=== PATIENT | male | born 1960 | race Caucasian/White ===

== ENCOUNTER 2016-07-30 13:53 | Outpatient (CLI) | payer MEDICARE, MEDICAID | END 2016-07-30 13:54 | LOC: NEPHRO 13:53 | PROVIDERS: ATTEND Internal Medicine Nephrology | DX: I12.9 Hypertensive chronic kidney disease with stage 1 through stage 4 chronic kidney disease, or unspecified chronic kidney disease (principal); N18.9 Chronic kidney disease, unspecified; Z94.0 Kidney transplant status; E87.6 Hypokalemia | CPT/HCPCS: G0463 ==

== ENCOUNTER 2016-12-02 13:14 | Outpatient (CLI) | payer MEDICARE, BC, MEDICAID | END 2016-12-02 13:15 | LOC: NEPHRO 13:14 | PROVIDERS: ATTEND Internal Medicine Nephrology | DX: Z94.0 Kidney transplant status (principal); E13.9 Other specified diabetes mellitus without complications | CPT/HCPCS: G0463 ==

== ENCOUNTER 2017-03-17 13:59 | Outpatient (CLI) | payer MEDICARE, BC | END 2017-03-17 14:00 | LOC: NEPHRO 13:59 | PROVIDERS: ATTEND Internal Medicine Nephrology | DX: E11.9 Type 2 diabetes mellitus without complications (principal); I10 Essential (primary) hypertension; Z94.0 Kidney transplant status | CPT/HCPCS: G0463 ==

== ENCOUNTER 2017-06-09 14:04 | Outpatient (CLI) | payer MEDICARE, BC | END 2017-06-09 14:05 | LOC: NEPHRO 14:04 | PROVIDERS: ATTEND Internal Medicine Nephrology | DX: E87.6 Hypokalemia (principal); Z94.0 Kidney transplant status | CPT/HCPCS: G0463 ==

== ENCOUNTER 2017-10-13 13:45 | Outpatient (CLI) | payer MEDICARE, BC | END 2017-10-13 13:46 | LOC: NEPHRO 13:45 | PROVIDERS: ATTEND Internal Medicine Nephrology | DX: Z94.0 Kidney transplant status (principal); I10 Essential (primary) hypertension; N18.9 Chronic kidney disease, unspecified | CPT/HCPCS: G0463 ==

== ENCOUNTER 2018-02-16 14:18 | Outpatient (CLI) | payer MEDICARE, BC | END 2018-02-16 14:20 | LOC: NEPHRO 14:18 | PROVIDERS: ATTEND Internal Medicine Nephrology | DX: Z94.0 Kidney transplant status (principal); Q61.3 Polycystic kidney, unspecified | CPT/HCPCS: G0463 ==

== ENCOUNTER 2018-10-05 15:09 | Outpatient (CLI) | payer MEDICARE | END 2018-10-05 15:11 | LOC: NEPHRO 15:09 | PROVIDERS: ATTEND Internal Medicine Nephrology | DX: Q61.2 Polycystic kidney, adult type (principal); Z94.0 Kidney transplant status; Z72.0 Tobacco use | CPT/HCPCS: G0463 ==

== ENCOUNTER 2019-01-11 14:52 | Outpatient (CLI) | payer MEDICARE | END 2019-01-11 15:20 | LOC: NEPHRO 14:52 | PROVIDERS: ATTEND Internal Medicine Nephrology | DX: Q61.2 Polycystic kidney, adult type (principal); N25.0 Renal osteodystrophy; Z94.0 Kidney transplant status ==

== ENCOUNTER → 2019-03-08 | Outpatient (CLI) | payer MEDICARE | LOC: CANPRECLI → NEPHRO 13:46 | PROVIDERS: ATTEND Internal Medicine Nephrology | DX: Z48.22 Encounter for aftercare following kidney transplant (principal) | CPT/HCPCS: 99213; G0463 ==

== ENCOUNTER 2019-05-17 14:08 | Outpatient (CLI) | payer MEDICARE | END 2019-05-17 14:40 | LOC: NEPHRO 14:08 | PROVIDERS: ATTEND Internal Medicine Nephrology | DX: Z48.22 Encounter for aftercare following kidney transplant (principal); N23 Unspecified renal colic | CPT/HCPCS: 99213; G0463 ==